=== PATIENT | male | born 1980 | race Caucasian/White ===

== ENCOUNTER 2023-07-18 11:12 | Emergency (ER) | payer BC, SELFPAY ==
[2023-07-18] VITALS (10 sets, daily range): BP systolic 120–135; BP diastolic 90–108; PULSE 65–78; RESP 16; O2SAT 99–100
--- NOTE | 2023-07-18 11:23 | CT_ITS ---
Patient: RACHEL LEWIS Facility:?[facility] Patient ID:?[id number] Site Patient ID:?[id number]. Site :?[id number] Study:?CT-Head WITHOUT STROKE CODE-07/18/2023 11:36:28 AM Ordering Physician:?DR. SALINAS Final Report: Indication: Speech vision changes, resolved Technique: Volumetric multidetector CT images of the head were obtained without the administration of low osmolar intravenous contrast. Comparison: None available Findings: There is no intra-axial or extra-axial fluid collection. There is no mass effect or midline shift. The ventricles and sulci are normal in size and position for age. The brain parenchyma is grossly preserved in attenuation and mulligan-white differentiation. The orbits and their contents are grossly within normal limits. The bony calvarium is grossly intact. The paranasal sinuses are clear. The mastoid air cells are well aerated. Impression: No acute intracranial abnormality. Findings were reported to Dr. Fisher at 11:47 a.m. 07/18/[address] all [address] scans at this facility use dose modulation, iterative reconstruction, and/or weight-based dosing when appropriate to reduce radiation dose to as low as reasonably achievable. Dictated by Berny Myers MD @ 07/18/2023 11:59:48 AM Signed by:?Berny Myers MD @07/18/2023 11:59:48 AM (Electronic Signature)
--- NOTE | 2023-07-18 11:25 | ED_ITS ---
[facility] - General Adult General Date Seen: 07/18/23 Chief complaint: Headache/Migraine Stated complaint: Slurred speech, headache, face feels weird Time Seen by Provider: 07/18/23 11:13 Source: patient and family Mode of arrival: ambulatory Limitations: no limitations History of Present Illness HPI narrative: Patient is a 42-year-old male who developed some vision and speech changes about an hour ago which have now resolved. He is here with his who is the clinical coordinator at the [facility]. He says the 1st thing he noticed was that his vision was off. He said he was reading something for work and felt like the central vision was gone and he could not see what he was reading. His says that he then was having some difficulty with word finding, she had him try to repeat the sentence ?you can teach an old dog new tricks and with multiple times he was not able to do that, she says that he would leave words out, transpose the words or say the wrong words. He does feel that these symptoms both vision and speech have completely resolved. He now has a headache, which is mild. He denies any recent trauma or illness. He has no history of migraine. No stroke risk factors such as hypertension, high cholesterol, history of heart disease or significant family history. Review of Systems Status of ROS: Reports: 10 or more systems reviewed and unremarkable except as noted in History and below Exam Narrative: Exam Narrative: Vital signs as noted above. In general, an alert, well-appearing patient. Head: Normocephalic, atraumatic. Eyes: Pupils are equal reactive. Extraocular movements are full. Conjunctivae are normal. ENT: Mucous membranes are moist. Throat is normal. Neck: Supple without lymphadenopathy. Heart: Regular rate and rhythm. No murmur or rub. Lungs: Clear bilaterally. No increased work of breathing, crackles or wheezes. Abdomen: Soft and nontender. No organomegaly. Extremities: Well perfused. No edema. No calf tenderness. Pulses intact. Neurologic: Patient is alert and oriented to person and place. Speech is fluent. Face is symmetric. Moves all extremities equally. Cerebellar function is intact by finger-nose testing. NIH stroke score 0. Affect: Normal. Skin: Warm and dry. Well perfused. Const: Vital Signs, click to edit/add: Vital Signs - 24 hr 07/18/23 11:23 07/18/23 11:38 07/18/23 11:40 Pulse Rate Respiratory Rate Blood Pressure Blood Pressure [Ri ght Upper Arm] Pulse Oximetry 99 99 99 Oxygen Delivery Me thod 07/18/23 11:45 07/18/23 11:46 07/18/23 11:50 Pulse Rate 78 Respiratory Rate Blood Pressure 120/108 H Blood Pressure [Ri ght Upper Arm] Pulse Oximetry 99 99 99 Oxygen Delivery Me thod 07/18/23 12:32 07/18/23 12:45 07/18/23 13:03 Pulse Rate 75 71 65 Respiratory Rate Blood Pressure Blood Pressure [Ri ght Upper Arm] Pulse Oximetry 99 100 99 Oxygen Delivery Me thod 07/18/23 13:12 07/18/23 13:12 Pulse Rate Respiratory Rate 16 Blood Pressure 135/90 H Blood Pressure [Ri ght Upper Arm] 135/90 H Pulse Oximetry 99 Oxygen Delivery Me thod Room Air Course Course ED Course: Following brief initial evaluation, patient went for CT of the head without contrast. By my review this was unremarkable, read as negative by Radiology. A stroke code had been called, I talked with Dr. Fisher about this patient, differential diagnosis includes migraine, seizure, intracranial hemorrhage, less likely stroke or mass. Given negative CT, he felt that MRI would be reasonable to rule out mass or seizure focus, but overall agreed that symptoms are more likely to be migraine. Low suspicion of stroke, he is young and without significant risk factors. Exam now is normal. He had ibuprofen here, declined the need for anything else for headache. MRI of the brain read by Radiology as showing the following: Findings: The ventricles, sulci and gyri are normal size, shape and contour for age. Few scattered foci of T2 prolongation in the subcortical white matter of both cerebral hemispheres are nonspecific. The pituitary gland, optic chiasm, and cerebellar tonsils are unremarkable. The midline structures are centrally located with no evidence of shift. There are no suspicious intra or extra-axial fluid collections. No region of restricted diffusion. No pathologic susceptibility artifacts. Expected flow voids in the cavernous carotids and basilar artery. Impression: 1. No evidence of acute intracranial abnormality. 2. Scattered foci of T2 prolongation in the frontal lobe subcortical white matter nonspecific. Differential considerations include sequela of migraine headache, hypertension, diabetes, and collagen vascular disease. Reasonable to discharge home, advised him that he may well have recurrence of similar symptoms. Okay to treat with ibuprofen or Tylenol. Primary care follow-up in the next week for recheck. Vital Signs Vital signs: Initial Vital Signs Pulse Oximetry 99 07/18/23 11:23 Vital Signs Pulse Oximetry 99 07/18/23 11:23 Pulse Rate 65 07/18/23 13:03 Respiratory Rate 16 07/18/23 13:12 Blood Pressure 135/90 H 07/18/23 13:12 Pulse Oximetry 99 07/18/23 13:12 Oxygen Delivery Method Room Air 07/18/23 13:12 Medications Administered Medications: Discontinued Medications Generic Name Dose Route Start Last Admin Trade Name Freq PRN Reason Stop Dose Admin Ibuprofen 400 mg 07/18/23 11:38 07/18/23 12:31 Ibuprofen 200 Mg Tablet PO 07/18/23 11:39 400 mg ONCE ONE Administration Medical Decision Making Lab Data Labs: Lab Results 07/18/23 Range/Units 11:23 WBC 5.12 (4.50-11.00) K/uL RBC 4.86 (4.30-5.90) m/uL Hgb 14.7 (13.5-17.5) gm/dL Hct 43.8 (37.0-53.0) % MCV 90 (80-100) fL MCH 30 (26-34) pg MCHC 34 (32-36) gm/dL RDW Coeff of Kaylan 11.6 (11.5-15.5) % Plt Count 315 (140-440) K/uL Neut % (Auto) 53.9 (42.0-72.0) % Lymph % (Auto) 38.1 (20-44) % [place] % (Auto) 6.4 (0.0-11.0) % Eos % (Auto) 1.0 (0.0-7.0) % Baso % (Auto) 0.6 (0.0-3.0) % Neut # (Auto) 2.76 (1.7-7.0) K/uL Lymph # (Auto) 1.95 (0.90-2.90) K/uL [place] # (Auto) 0.30 (0.00-0.90) K/UL Eos # (Auto) 0.05 (0.00-0.50) K/uL Baso # (Auto) 0.03 (0.00-0.30) K/uL Abs Immat Gran (auto) 0.00 (0.00-0.30) K/uL Imm/Tot Granulo (auto) 0.0 % INR 0.96 (0.91-1.10) APTT 32 (23-33) Seconds D-Dimer Quant (PE/DVT) 0.30 (0.00-0.50) ug/ml Sodium 139 (135-149) mmol/L Potassium 4.1 (3.6-5.1) mmol/L Chloride 107 (96-114) mmol/L Carbon Dioxide 27 (20-32) mmol/L Anion Gap 5 L (7-15) mEq/L BUN 16 (5-24) mg/dL Creatinine 0.8 (0.5-1.5) mg/dL Estimated GFR 112 ml/min Glucose 97 (60-115) mg/dL Calcium 9.3 (8.4-10.6) mg/dL Discharge Plan Discharge Clinical Impression: Migraine Patient Disposition: Home, Self-Care Condition: Improved Instructions: Migraine Headache (ED) Activity Level: No Restrictions Follow Up/Referrals: Provider,Not a Local [Primary Care Provider] - Stand Alone Forms: [facility] Info Instructions
[2023-07-18 11:31] LABS: Basophils Absolute Auto 0.03 K/uL (0.00-0.30); Basophils Percent Auto 0.6 % (0.0-3.0); Eosinophils Absolute Auto 0.05 K/uL (0.00-0.50); Hematocrit 43.8 % (37.0-53.0); Hemoglobin* 14.7 gm/dL (13.5-17.5); Lymphocytes Absolute Auto 1.95 K/uL (0.90-2.90); Lymphocytes Percent Auto 38.1 % (20-44); Mean Corpuscular HGB Conc 34 gm/dL (32-36); Mean Corpuscular Hemoglobin 30 pg (26-34); Mean Corpuscular Volume 90 fL (80-100); Monocytes Percent Auto 6.4 % (0.0-11.0); Neutrophils Absolute Auto 2.76 K/uL (1.7-7.0); Neutrophils Percent Auto 53.9 % (42.0-72.0); Platelet Count* 315 K/uL (140-440); RDW Coefficient of Variation % 11.6 % (11.5-15.5); Red Blood Count 4.86 m/uL (4.30-5.90); Slide Review Reflex No; White Blood Count* 5.12 K/uL (4.50-11.00)
[2023-07-18 11:44] LABS: Chloride* 107 mmol/L (96-114); Potassium* 4.1 mmol/L (3.6-5.1); Sodium* 139 mmol/L (135-149)
[2023-07-18] MEDS: 0.9 % SODIUM CHLORIDE 1000 ml 1,000 ML IV (11:45)
[2023-07-18 11:46] LABS: INR 0.96 (0.91-1.10); Prothrombin Time 13.4 Seconds
[2023-07-18 11:47] LABS: Anion Gap 5 mEq/L (7-15); Blood Urea Nitrogen* 16 mg/dL (5-24); Calcium* 9.3 mg/dL (8.4-10.6); Carbon Dioxide* 27 mmol/L (20-32); Creatinine* 0.8 mg/dL (0.5-1.5); Estimated Glomerular Filt Rate 112 ml/min; Glucose* 97 mg/dL (60-115); Partial Thromboplastin Time* 32 Seconds (23-33)
--- NOTE | 2023-07-18 11:56 | MR_ITS ---
Patient: RACHEL LEWIS Facility:?[facility] Patient ID:?[id number] Site Patient ID:?[id number]. Site :?[id number] Study:?MRI-Head W/O-07/18/2023 12:20:26 PM Ordering Physician:JENSEN Final Report: Indication: Vision changes, speech changes, and headaches. Technique: Noncontrast sagittal T1 weighted, axial FLAIR, axial T2 weighted, and axial diffusion weighted sequences are provided. Comparison: No prior studies available for comparison at this institution. Findings: The ventricles, sulci and gyri are normal size, shape and contour for age. Few scattered foci of T2 prolongation in the subcortical white matter of both cerebral hemispheres are nonspecific. The pituitary gland, optic chiasm, and cerebellar tonsils are unremarkable. The midline structures are centrally located with no evidence of shift. There are no suspicious intra or extra-axial fluid collections. No region of restricted diffusion. No pathologic susceptibility artifacts. Expected flow voids in the cavernous carotids and basilar artery. Impression: 1. No evidence of acute intracranial abnormality. 2. Scattered foci of T2 prolongation in the frontal lobe subcortical white matter nonspecific. Differential considerations include sequela of migraine headache, hypertension, diabetes, and collagen vascular disease. Dictated by Silvino Day MD @ 07/18/2023 12:33:50 PM Signed by:?Silvino Day MD @07/18/2023 12:33:50 PM (Electronic Signature)
[2023-07-18] MEDS: IBUPROFEN 200 MG TABLET 400 MG PO (12:31)
== END 2023-07-18 13:21 | disposition home or self-care (01) ==
PROVIDERS: Emergency Provider Emergency Medicine
DX: G43.909 Migraine, unspecified, not intractable, without status migrainosus (principal)
CPT/HCPCS: 36415; 70450; 70551; 80048; 85025; 85379; 85610; 85730; 93005; 94761; 96360; 96361; 99284; 99285; A9270; J7030